=== PATIENT | male | born 1970 | race African-American/Black ===

== ENCOUNTER 2016-08-11 10:19 | Emergency (ER) | payer OTHER ==
[~2016-08-11] VITALS: Ht 182.9 cm; Wt 99.8 kg
[~2016-08-11 10:19] MED LIST: CYCLOBENZAPRINE10 MG ORAL; IBUPROFEN600 MG ORAL
[2016-08-11] MEDS ORDERED: Dicyclomine HCl 10mg/5ml oral soln ORAL ONE (11:00)
[2016-08-11] MEDS ORDERED: Lidocaine 2% Visc 15ml soln ORAL ONE (11:00)
[2016-08-11 11:05] VITALS: BP 120/73
[2016-08-11 11:18] LABS: BASOPHILS % (AUTO) 1.7 % (0.0-2.0); EOSINOPHILS % (AUTO) 0.6 % (0.0-3.0); LYMPHOCYTES % (AUTO) 25.6 % (20.0-45.0); MEAN CORPUSCULAR HEMOGLOBIN 28.9 PG (27.0-31.0); MEAN CORPUSCULAR HGB CONC 33.4 G/DL (32.0-36.0); MEAN CORPUSCULAR VOLUME 87 FL (80-99); MEAN PLATELET VOLUME 6.2 FL (6.5-10.1); MONOCYTES % (AUTO) 7.2 % (1.0-10.0); NEUTROPHILS % (AUTO) 64.9 % (45.0-75.0); PLATELET COUNT 238 K/UL (150-450); RED BLOOD COUNT 5.31 M/UL (4.70-6.10); RED CELL DISTRIBUTION WIDTH 11.4 % (11.6-14.8); WHITE BLOOD COUNT 6.2 K/UL (4.8-10.8)
[2016-08-11 11:21] LABS: APPEARANCE,URINE CLEAR; KETONES,URINE NEGATIVE (NEGATIVE); LEUKOCYTE ESTERASE ,URINE NEGATIVE (NEGATIVE); NITRITE,URINE NEGATIVE (NEGATIVE); PH,URINE 6 (4.5-8.0); PROTEIN,URINE 1+ (NEGATIVE); UROBILINOGEN,URINE NORMAL MG/DL (0.0-1.0)
[2016-08-11 11:31] LABS: ALANINE AMINOTRANSFERASE 32 U/L (3-41); ALBUMIN/GLOBULIN RATIO 1.1 (1.0-2.7); ANION GAP 15 (5-15); ASPARTATE AMINO TRANSFERASE 17 U/L (5-40); CALCIUM 9.2 mg/dL (8.6-10.2); CARBON DIOXIDE 27 mEQ/L (20-30); CHLORIDE 90 mEQ/L (98-107); CREATININE 1.3 mg/dL (0.7-1.2); GLOMERULAR FILTRATION RATE > 60 mL/min (>60); HEMOLYSIS 2; LIPASE 34 U/L (< 60); SODIUM 132 mEQ/L (135-145); TOTAL PROTEIN 7.2 g/dL (6.6-8.7); TROPONIN I < 0.30 ng/mL (<=0.30)
--- NOTE | 2016-08-11 11:31 | Emergency Room Report ---
History of Present Illness General Chief Complaint: Abdominal Pain Source: Patient (GirmaJamie) Present Illness HPI Patient is a 45-year-old male who presented after increased epigastric pain with associated chest pain and vomiting. Patient stated that he had gradual onset of symptoms over the past 4 days. Pain had been sharp in nature. He reported having subjective fever. He stated pain was worse with movement, he had decreased appetite. (Jamie Rayo) Allergies: Coded Allergies: No Known Allergies (Unverified , 09/29/14) Patient History Past Medical History: see triage record Reviewed Nursing Documentation: PMH: Agreed, PSxH: Agreed (Jamie Rayo) Nursing Documentation-PMH Past Medical History: No Stated History (Jamie Rayo) Review of Systems All Other Systems: negative except mentioned in HPI (Jamie Rayo) Physical Exam Vital Signs Date Time Temp Pulse Resp B/P Pulse Ox O2 Delivery O2 Flow Rate FiO2 08/11/16 10:28 99.0 88 14 121/72 97 Room Air Sp02 EP Interpretation: reviewed, normal General Appearance: normal inspection, alert, GCS 15, mild distress Head: atraumatic ENT: normal ENT inspection, hearing grossly normal, normal voice Neck: normal inspection, full range of motion, supple, no bony tend Respiratory: normal inspection, lungs clear, normal breath sounds, no respiratory distress, no retraction, no wheezing Cardiovascular #1: regular rate, rhythm, no edema Gastrointestinal: normal bowel sounds, non tender, no guarding, no hernia, tenderness - mild diffuse Genitourinary: no CVA tenderness Musculoskeletal: normal inspection, back normal, normal range of motion Neurologic: normal inspection, alert, oriented x3, responsive, 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 Differential diagnoses included ischemic bowel, appendicitis, perforated viscus , abdominal aortic aneurysm, inferior myocardial infarction, viral gastroenteritis Because of complexity of patient's case laboratory testing and imaging studies were ordered. Laboratory studies are unremarkable. CT abdomen pelvis was ordered due to the patient's tenderness throughout his abdomen.The patient was endorsed to Dr. Germain (Jamie Rayo) ER Course I assumed care of this patient from Dr. Rayo. This patient presented with nausea, vomiting, diarrhea and abdominal pain. He was awaiting CT abdomen and pelvis with results. This was to rule out appendicitis. Laboratory workup was noncontributory. The patient had improvement in his symptoms. CT abd/pelvis shows only liquid stool and specifically no e/o appendicitis or other serious intra-abdominal process. I reassessed the patient and he had significant improvement in his symptoms. He is tolerating oral without vomiting. He is not nauseated. Overall, the patient's evaluation is benign. I will give the patient oral Zofran and treatment for gastritis. The patient was given return precautions and followup instructions. I did not identify an emergency medical condition. (TERRY SANTANA D.O.) CT/MRI/US Diagnostic Results CT/MRI/US Diagnostic Results : Imaging Test Ordered: CT abd/pelvis Impression See official report. Liquid stool. No e/o appendicitis. (TERRY SANTANA D.O.) Last Vital Signs Date Time Temp Pulse Resp B/P Pulse Ox O2 Delivery O2 Flow Rate FiO2 08/11/16 11:05 20 120/73 Room Air 08/11/16 10:28 99.0 88 97 Status: improved (Jamie Rayo) Disposition: HOME, SELF-CARE Condition: Improved Scripts Ondansetron Odt* (ZOFRAN ODT*) 4 Mg Tab.rapdis 4 MG ORAL Q6H Y for Nausea & Vomiting, #10 TAB 0 Refills Prov: TERRY SANTANA D.O. 08/11/16 Ranitidine Hcl* (ZANTAC*) 150 Mg Tablet 150 MG ORAL TWICE A DAY, #30 TAB Prov: TERRY SANTANAOLucia 08/11/16 Calcium Carbonate/Simethicone (MAALOX ADVANCED TAB CHEW) 1 Each Tab.chew 1 EACH PO Q4HR, #20 TAB Prov: TERRY SANTANA D.O. 08/11/16 Referrals: DEL VELEZ [facility],REFERRI (PCP) Patient Instructions: Viral Gastroenteritis, Adult Jamie Rayo August 11, 2016 11:31 TERRY SANTANA D.O. August 11, 2016 16:07
[2016-08-11 11:35] LABS: BACTERIA,URINE OCCASIONAL /HPF; SQUAMOUS EPITHELIAL CELL,UR OCCASIONAL /LPF (NONE/OCC); WBC,URINE 0-2 /HPF (0 - 0)
[2016-08-11 11:44] LABS: INR 1.1 (0.9-1.1); PROTHROMBIN TIME 10.9 SEC (9.30-11.50)
[2016-08-11 13:51] VITALS: BP 120/80
[2016-08-11] MEDS ORDERED: Morphine Sulfate 4mg/ml Inj IVP ONE ×2 (14:00)
--- NOTE | 2016-08-11 14:05 | Diagnostic Imaging Report ---
Indication: Chest Pain Comparison: 09/29/14 A single view chest radiograph was obtained. Findings: Cardiomediastinal appearance is within normal limits for age. Pulmonary vascularity is appropriate. The diaphragmatic contour is smooth and costophrenic angles are sharp. No pleural effusions are identified. The bones are unremarkable. Impression: No acute findings
[2016-08-11] MEDS ORDERED: MAALOX ADVANCE1 EACH PO (16:11)
[2016-08-11] MEDS ORDERED: RANITIDINE HCL150 MG ORAL (16:11)
[2016-08-11] MEDS ORDERED: ZOFRAN ODT4 MG ORAL (16:11)
[2016-08-11 16:41] VITALS: BP 105/75
--- NOTE | 2016-08-12 09:04 | Diagnostic Imaging Report ---
Indication: Abdominal pain Technique: Continuous helical transaxial imaging of the abdomen and pelvis was obtained from the lung bases to the pubic symphysis during intravenous contrast administration. Coronal 2-D reformats were also obtained. Study obtained in a Siemens sensation [address] Total Dose length Product (DLP): [address] Dose Index Volume (CTDIvol): 18 mGy Comparison: None Findings: There is posterior basilar atelectasis bilaterally. There is a small hiatal hernia. Gallbladder is contracted. The liver is unremarkable. The spleen is unremarkable. Small cyst in the left kidney noted. There is no hydronephrosis. Appendix is normal. Some liquefied stool noted in the rectum sigmoid. Correlate for diarrhea. No evidence of bowel obstruction, free fluid or free air. Impression: Liquefied stool within the colon. Correlate for diarrhea. Normal appendix Small hiatal hernia Mild posterior basilar atelectasis. The CT scanner at [facility] is accredited by the [employer] and the scans are performed using protocols designed to limit radiation exposure to as low as reasonably achievable to attain images of sufficient resolution adequate for diagnostic evaluation.
--- NOTE | 2016-08-12 17:15 | Cardiology Report ---
APPROVED REPORT EKG Measurement Heart [id number] Normal sinus rhythm Normal ECG
== END 2016-08-11 16:41 | disposition home or self-care (01) ==
LOC: EMR 10:45
DX: K52.9 Noninfective gastroenteritis and colitis, unspecified (principal); R07.9 Chest pain, unspecified
CPT/HCPCS: 36415; 71010; 74177; 80053; 81003; 83690; 84484; 85025; 85610; 85730; 86850; 86870; 86900; 86901; 93005; 96374; 96375; 99284; J2270; J2405; Q9967

== ENCOUNTER 2017-01-24 14:54 | Emergency (ER) | payer OTHER ==
[~2017-01-24] VITALS: Ht 182.9 cm; Wt 102.1 kg
[~2017-01-24 14:54] MED LIST changes: +MAALOX ADVANCE1 EACH PO; +RANITIDINE HCL150 MG ORAL; +ZOFRAN ODT4 MG ORAL
[2017-01-24] MEDS ORDERED: NKM (15:04)
[2017-01-24 15:05] VITALS: BP 110/73
[2017-01-24] MEDS ORDERED: Ketorolac 60mg Inj IM ONE (15:30)
--- NOTE | 2017-01-24 15:47 | Emergency Room Report ---
History of Present Illness General Chief Complaint: Pain Source: Patient Present Illness HPI 46-year-old male presents to the emergency department complaining of 10 out of 10 in severity right-sided low back pain that radiates down the posterior right hamstring and into the knee x2 days. Patient reports prior surgery to the right knee for anterior cruciate ligament repair in 2005. Patient denies trauma or fall he denies fevers, chills, recent spinal procedures or history of neoplastic disease. 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 Patient states he has a difficult time finding a comfortable position and that laying flat or certain movements such as twisting aggravate his pain. He denies erythema, increased temperature palpation, open wounds. Patient does report some swelling to the right knee. denies abdominal pain, testicular pain or swelling, or swollen lymph nodes. Denies numbness tingling or loss of sensation or gross motor movements of the extremities, incontinence of bowel or bladder. Denies CP, Palpitations, LOC, AMS , dizziness, Changes in Vision, Sensation, paresthesias, or a sudden severe headache. Allergies: Coded Allergies: No Known Allergies (Unverified , 09/29/14) Patient History Past Medical History: see triage record Past Surgical History: none Pertinent Family History: none Immunizations: UTD Reviewed Nursing Documentation: PMH: Agreed, PSxH: Agreed Nursing Documentation-PMH Past Medical History: No Stated History Review of Systems All Other Systems: negative except mentioned in HPI Physical Exam Vital Signs Date Time Temp Pulse Resp B/P (MAP) Pulse Ox O2 Delivery O2 Flow Rate FiO2 01/24/17 14:56 98.2 91 18 110/73 98 Room Air Sp02 EP Interpretation: reviewed, normal General Appearance: no apparent distress, alert, GCS 15, non-toxic Head: normocephalic, atraumatic Eyes: bilateral eye normal inspection, bilateral eye PERRL ENT: hearing grossly normal, normal voice Neck: full range of motion, no bony tend Respiratory: lungs clear, normal breath sounds, speaking full sentences Cardiovascular #1: regular rate, rhythm, normal capillary refill Gastrointestinal: non tender, soft, no guarding Rectal: deferred Genitourinary: normal inspection, no CVA tenderness Musculoskeletal: back normal, gait/station normal, normal range of motion, tender - mild right upper glute and right lumbar paraspinal TTP, no midline spinal ttp, no obvious deformities, TTP to the lateral right knee, some swelling noted, lateral surgical scar noted, no erythema or increased temperature to palpation, FROM with pain. Neurologic: alert, oriented x3, responsive, motor strength/tone normal, sensory intact, speech normal Psychiatric: judgement/insight normal, memory normal, mood/affect normal Skin: normal color, no rash, warm/dry, well hydrated Medical Decision Making PA Attestation Dr. Rodrigez is my supervising Physician whom patient management has been discussed with. Diagnostic Impression: Primary Impression: Acute low back pain Qualified Codes: M54.41 - Lumbago with sciatica, right side Additional Impression: Knee pain Qualified Codes: M25.561 - Pain in right knee ER Course 46-year-old male presents to the emergency department complaining of 10 out of 10 in severity right-sided low back pain that radiates down the posterior right hamstring and into the knee x2 days. Patient reports prior surgery to the right knee for anterior cruciate ligament repair in 2005. Patient denies trauma or fall he denies fevers, chills, recent spinal procedures or history of neoplastic disease. 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 Patient states he has a difficult time finding a comfortable position and that laying flat or certain movements such as twisting aggravate his pain. He denies erythema, increased temperature palpation, open wounds. Patient does report some swelling to the right knee. denies abdominal pain, testicular pain or swelling, or swollen lymph nodes. Denies numbness tingling or loss of sensation or gross motor movements of the extremities, incontinence of bowel or bladder. Denies CP, Palpitations, LOC, AMS , dizziness, Changes in Vision, Sensation, paresthesias, or a sudden severe headache. Ddx considered but are not limited to Fracture, dislocation, contusion, epidural abscess, Sprain/Strain/Spasm, septic joint, gout Vital signs: are WNL, pt. is afebrile H&PE are most consistent with sciatica Pt. unable to tolerate straight leg raise. ORDERS: X-ray not required at this time, no spinous process tenderness ED INTERVENTIONS: -20mg Toradol IM - Soma PO - Ricki wrap applied by technology trainer. Pt. remains neurovascularly intact. Discussed with patient he will be treated as an outpatient with conservative management. Discussed followup with primary care and possibly orthopedic referral. He is instructed to return promptly to the emergency department with worsening or new symptoms Re-Evaluation: pt. states his pain has improved with ED interventions DISCHARGE: At this time pt. is stable for d/c to home. Will provide printed patient care instructions, and any necessary prescriptions. Care plan and follow up instructions have been discussed with the patient prior to discharge. Last Vital Signs Date Time Temp Pulse Resp B/P (MAP) Pulse Ox O2 Delivery O2 Flow Rate FiO2 01/24/17 15:05 98.2 18 110/73 98 Room Air 01/24/17 14:56 91 Disposition: HOME, SELF-CARE Condition: Stable Scripts Lidocaine (Lidoderm) 1 Each Adh..patch 1 PATCH TOPIC BID for 7 Days, #14 PATCH 0 Refills Patch(es) may remain in place for up to 12 hours in any 24-hour period. Prov: Didi Rose 01/24/17 Ibuprofen* (MOTRIN*) 600 Mg Tablet 600 MG ORAL THREE TIMES A DAY, #30 TAB 0 Refills Prov: Didi Rose 01/24/17 Methocarbamol* (ROBAXIN-750*) 750 Mg Tablet 750 MG PO TID for 7 Days, #21 TAB 0 Refills Prov: Didi Rose 01/24/17 Referrals: DEL GALLEGOS PLSonja,REFERRI (PCP) Departure Forms: Return to Work Return to Work Date: Jan 28, 2017 Work Restrictions: No Heavy Lifting, No Prolonged Standing Other Restrictions: light duty x 1 week. Return to Full Activity: Feb 04, 2017 Patient Instructions: Sciatica Additional Instructions: Take medications as directed. Follow up with a Primary Care Provider in 3-5 days, even if your symptoms have resolved. --Please review list of primary care clinics, if you do not already have a primary care provider Return sooner to ED if new symptoms occur, or current symptoms become worse. Do not drink alcohol, drive, or operate heavy machinery while taking Muscle Relaxer as this may cause drowsiness. - Please note that this Emergency Department Report was dictated using Noteleaflift manager technology software, occasionally this can lead to erroneous entry secondary to interpretation by the dictation equipment. Didi Rose Jan 24, 2017 15:47
[2017-01-24] MEDS ORDERED: ROBAXIN-750750 MG PO (15:48)
[2017-01-24] MEDS ORDERED: LIDODERM700 M1 TOPIC (15:48)
[2017-01-24] MEDS ORDERED: IBUPROFEN600 MG ORAL (15:48)
[2017-01-24 16:09] VITALS: BP 110/73
== END 2017-01-24 16:10 | disposition home or self-care (01) ==
LOC: EMR 15:35
DX: M54.41 Lumbago with sciatica, right side (principal); M25.561 Pain in right knee
CPT/HCPCS: 96372; 99284

== ENCOUNTER 2017-07-15 00:24 | Emergency (ER) | payer OTHER ==
[~2017-07-15] VITALS: Ht 183.5 cm; Wt 103.0 kg
[~2017-07-15 00:24] MED LIST changes: +LIDODERM700 M1 TOPIC; +NKM; +ROBAXIN-750750 MG PO
[2017-07-15] MEDS ORDERED: DILANTIN100 MG ORAL (00:40)
--- NOTE | 2017-07-15 01:03 | Emergency Room Report ---
History of Present Illness General Chief Complaint: Palpitations Source: Patient Present Illness HPI 46-year-old male, history of "irregular heartbeat", p/w chest pain for one day. Localized to substernal area, no radiation to back or other areas, sharp in nature, gradual in onsets. no SOB. Worsened with deep inspiration. Denies palpitations, diaphoresis, n/v. Patient states that he has had this chest pain multiple times in the past Admits to smoking but denies any drug use Denies fever, chills, cough, abd pain, recent viral illness. Denies trauma. Allergies: Coded Allergies: No Known Allergies (Unverified , 09/29/14) Patient History Past Medical History: see triage record Past Surgical History: none Pertinent Family History: none Reviewed Nursing Documentation: PMH: Agreed; PSxH: Agreed Nursing Documentation-PMH Past Medical History: No History, Except For Hx Seizures: Yes Review of Systems All Other Systems: negative except mentioned in HPI Physical Exam Vital Signs Date Time Temp Pulse Resp B/P (MAP) Pulse Ox O2 Delivery O2 Flow Rate FiO2 07/15/17 00:36 98.2 110 16 174/80 99 Room Air 98.2 Sp02 EP Interpretation: reviewed, normal General Appearance: alert, GCS 15, moderate distress, other - anxious Head: normocephalic, atraumatic Eyes: bilateral eye normal inspection, bilateral eye PERRL, bilateral eye EOMI ENT: normal ENT inspection, normal pharynx, normal voice, moist mucus membranes Neck: normal inspection, full range of motion, supple Respiratory: normal inspection, lungs clear, normal breath sounds, no respiratory distress, no retraction, no wheezing, speaking full sentences, chest symmetrical Cardiovascular #1: no edema, tachycardia Cardiovascular #2: 2+ radial (R), 2+ radial (L) Gastrointestinal: normal inspection, non tender, soft, non-distended, no guarding Genitourinary: no CVA tenderness Musculoskeletal: normal inspection, back normal, normal range of motion, non- tender Neurologic: normal inspection, alert, oriented x3, responsive, motor strength/ tone normal, sensory intact, normal gait, speech normal Psychiatric: normal inspection, judgement/insight normal, memory normal Skin: normal inspection, normal color, no rash, warm/dry, well hydrated, normal turgor Medical Decision Making Diagnostic Impression: Primary Impression: Palpitations Additional Impression: Amphetamine abuse ER Course 46-year-old male with no sig pmhx p/w chest pain DDX: Musculoskeletal CP/costochondritis vs. pneumothorax vs. gastritis/GERD ACS less likely given age/history Plan: Labs, NSAIDs, EKG, CXR ER course: Patient's vitals have been stable during his ED stay, he has refused to do labs , states that he is paranoid that nurses will "inject him with something", he states that he needs his family members with him before labs could be drawn. His denying any suicidal, homicidal thoughts no hallucinations finally able to draw labs trop neg positive for meth Disposition: Patient will be discharged to home Strict precautions discussed with patient on when to emergently return to the ED : this includes worsening/severe chest pain, palpitations, shortness of breath, syncopal episodes, fever or chills, which may indicate severe illness. Patient verbalized understanding. Patient instructed to follow up with their PMD within the next 2 days. Patient agrees with plan. Please note that this Emergency Department Report was dictated using FindItmanager medical technology software, occasionally this can lead to erroneous entry secondary to interpretation by the dictation equipment. EKG Diagnostic Results EP Interpretation: Yes Rate: normal Rhythm: NSR ST Segments: No acute changes ASA given to patient: no Rhythm Strip EP Interpretation: Yes Rate: 90 Rhythm: NSR, no PVCs, no ectopy Chest X-ray CXR: Ordered: Yes 1 view Indication: Chest pain EP interpretation: Yes Interpretation: No consolidation, no effusion, no PTX, no acute cardiopulmonary disease Impression: No acute disease Electronically signed by Jens Nickerson MD Laboratory Tests Test 07/15/17 03:40 07/15/17 03:50 White Blood Count 5.3 K/UL (4.8-10.8) Red Blood Count 5.53 M/UL (4.70-6.10) Hemoglobin 16.4 G/DL (14.2-18.0) Hematocrit 47.4 % (42.0-52.0) Mean Corpuscular Volume 86 FL (80-99) Mean Corpuscular Hemoglobin 29.7 PG (27.0-31.0) Mean Corpuscular Hemoglobin Concent 34.6 G/DL (32.0-36.0) Red Cell Distribution Width 10.8 % (11.6-14.8) L Platelet Count 271 K/UL (150-450) Mean Platelet Volume 6.3 FL (6.5-10.1) L Neutrophils (%) (Auto) 44.1 % (45.0-75.0) L Lymphocytes (%) (Auto) 43.6 % (20.0-45.0) Monocytes (%) (Auto) 8.7 % (1.0-10.0) Eosinophils (%) (Auto) 1.7 % (0.0-3.0) Basophils (%) (Auto) 2.0 % (0.0-2.0) Sodium Level 136 MMOL/L (136-145) Potassium Level 3.9 MMOL/L (3.5-5.1) Chloride Level 100 MMOL/L (98-107) Carbon Dioxide Level 29 MMOL/L (21-32) Anion Gap 7 mmol/L (5-15) Blood Urea Nitrogen 17 mg/dL (7-18) Creatinine 1.4 MG/DL (0.55-1.30) H Estimate Glomerular Filtration Rate > 60 mL/min (>60) Glucose Level 110 MG/DL (74-106) H Calcium Level 9.7 MG/DL (8.5-10.1) Total Bilirubin Pending Aspartate Amino Transferase (AST) Pending Alanine Aminotransferase (ALT) Pending Alkaline Phosphatase Pending Troponin I 0.000 ng/mL (0.000-0.056) Pro-B-Type Natriuretic Peptide Pending Total Protein Pending Albumin Pending Globulin Pending Urine Color Yellow Urine Appearance Clear Urine pH 5 (4.5-8.0) Urine Specific [place] 1.025 (1.005-1.035) Urine Protein 3+ (NEGATIVE) H Urine Glucose (UA) Negative (NEGATIVE) Urine Ketones 2+ (NEGATIVE) H Urine Occult Blood 1+ (NEGATIVE) H Urine Nitrite Negative (NEGATIVE) Urine Bilirubin Negative (NEGATIVE) Urine Urobilinogen 1 MG/DL (0.0-1.0) H Urine Leukocyte Esterase 1+ (NEGATIVE) H Urine RBC 0-2 /HPF (0 - 0) H Urine WBC 0-2 /HPF (0 - 0) Urine Squamous Epithelial Cells Few /LPF (NONE/OCC) Urine Bacteria None /HPF (NONE) Urine Opiates Screen Negative (NEGATIVE) Urine Barbiturates Screen Negative (NEGATIVE) Phencyclidine (PCP) Screen Negative (NEGATIVE) Urine Amphetamines Screen Positive (NEGATIVE) H Urine Benzodiazepines Screen Negative (NEGATIVE) Urine Cocaine Screen Negative (NEGATIVE) Urine Marijuana (THC) Screen Negative (NEGATIVE) Last Vital Signs Date Time Temp Pulse Resp B/P (MAP) Pulse Ox O2 Delivery O2 Flow Rate FiO2 07/15/17 00:36 98.2 110 16 174/80 99 Room Air 98.2 Disposition: HOME, SELF-CARE Condition: Improved Jens Nickerson M.D. Jul 15, 2017 01:03
[2017-07-15 01:10] VITALS: BP 174/80
[2017-07-15] MEDS ORDERED: Acetaminophen 500mg (ES) tab ORAL ONE ×3 (02:15→05:00)
[2017-07-15 02:30] VITALS: BP 160/82
[2017-07-15 03:30] VITALS: BP 150/82
[2017-07-15 03:51] LABS: EOSINOPHILS % (AUTO) 1.7 % (0.0-3.0); HEMATOCRIT 47.4 % (42.0-52.0); HEMOGLOBIN 16.4 G/DL (14.2-18.0); LYMPHOCYTES % (AUTO) 43.6 % (20.0-45.0); MEAN CORPUSCULAR VOLUME 86 FL (80-99); MONOCYTES % (AUTO) 8.7 % (1.0-10.0); NEUTROPHILS % (AUTO) 44.1 % (45.0-75.0); PLATELET COUNT 271 K/UL (150-450); RED BLOOD COUNT 5.53 M/UL (4.70-6.10); RED CELL DISTRIBUTION WIDTH 10.8 % (11.6-14.8); WHITE BLOOD COUNT 5.3 K/UL (4.8-10.8)
[2017-07-15 04:00] LABS: APPEARANCE,URINE CLEAR; BILIRUBIN, URINE NEGATIVE (NEGATIVE); GLUCOSE, URINE (UA) NEGATIVE (NEGATIVE); KETONES,URINE 2+ (NEGATIVE); LEUKOCYTE ESTERASE ,URINE 1+ (NEGATIVE); NITRITE,URINE NEGATIVE (NEGATIVE); PH,URINE 5 (4.5-8.0); PROTEIN,URINE 3+ (NEGATIVE); UROBILINOGEN,URINE 1 MG/DL (0.0-1.0)
[2017-07-15] MEDS ORDERED: Morphine Sulfate 4mg/ml Inj IVP ONE (04:00)
[2017-07-15] MEDS ORDERED: LORazepam Inj 2mg/ml 1ml IV ONE (04:00)
[2017-07-15 04:03] LABS: COLOR,URINE YELLOW
[2017-07-15 04:11] LABS: ANION GAP 7 mmol/L (5-15); BLOOD UREA NITROGEN 17 mg/dL (7-18); CALCIUM 9.7 MG/DL (8.5-10.1); CARBON DIOXIDE 29 MMOL/L (21-32); CHLORIDE 100 MMOL/L (98-107); CREATININE 1.4 MG/DL (0.55-1.30); POTASSIUM 3.9 MMOL/L (3.5-5.1); SODIUM 136 MMOL/L (136-145)
[2017-07-15 04:29] LABS: ALANINE AMINOTRANSFERASE 32 U/L (12-78); ALBUMIN 4.6 G/DL (3.4-5.0); ALBUMIN/GLOBULIN RATIO 1.1 (1.0-2.7); ALKALINE PHOSPHATASE 68 U/L (46-116); ASPARTATE AMINO TRANSFERASE 17 U/L (15-37); BILIRUBIN,TOTAL 1.3 MG/DL (0.2-1.0)
[2017-07-15 04:45] VITALS: BP 145/74
[2017-07-15 05:13] LABS: BILIRUBIN,DIRECT 0.2 MG/DL (0.0-0.3)
[2017-07-15 05:52] VITALS: BP 132/76
--- NOTE | 2017-07-15 11:30 | Diagnostic Imaging Report ---
Indication: Chest pain Comparison: 597 A single view chest radiograph was obtained. Findings: Cardiomediastinal appearance is within normal limits for age. Pulmonary vascularity is appropriate. The diaphragmatic contour is smooth and costophrenic angles are sharp. No pleural effusions are identified. The bones are unremarkable. Impression: No acute findings
== END 2017-07-15 05:58 | disposition home or self-care (01) ==
LOC: EMR 01:00
DX: R00.2 Palpitations (principal); F15.10 Other stimulant abuse, uncomplicated
CPT/HCPCS: 36415; 71045; 80053; 80307; 81003; 82248; 83880; 84484; 85025; 93005; 99283

== ENCOUNTER 2017-07-15 06:15 | Emergency (ER) | payer OTHER ==
[~2017-07-15] VITALS: Ht 183.5 cm; Wt 102.1 kg
[~2017-07-15 06:15] MED LIST changes: +DILANTIN100 MG ORAL
[2017-07-15 06:34] VITALS: BP 142/83
[2017-07-15 06:58] VITALS: BP 138/78
--- NOTE | 2017-07-15 07:10 | Emergency Room Report ---
Physical Exam Vital Signs Date Time Temp Pulse Resp B/P (MAP) Pulse Ox O2 Delivery O2 Flow Rate FiO2 07/15/17 06:25 98.5 97 20 142/83 96 Room Air 98.4 Medical Decision Making Diagnostic Impression: Primary Impression: Chest pain ER Course This patient left without being seen. Please see the note by Dr. Nickerson for full history and physical. He ended up technically signing out AGAINST MEDICAL ADVICE. The patient had been seen by Dr. Nickerson just prior to my arrival and had just been discharged. Apparently, he checked back in for concerns of palpitations after doing methamphetamine. He underwent EKG which I reviewed and it was unremarkable. Per staff, the patient stated that because his EKG was normal he wanted to leave before being seen by a physician again. The patient was educated that he was not being assessed 5 physician. He indicated understanding. He is requesting copies of his EKGs according to staff. Regardless, I did not evaluate or see this patient. The patient did sign AGAINST MEDICAL ADVICE paperwork from the staff. I did overhear this conversation which was very clear that the patient would not be seen by physician. The patient stated he had already been seen and did not want to undergo repeat workup. The patient left without being seen by myself. EKG Diagnostic Results Rate: normal Rhythm: NSR ST Segments: no acute changes Rhythm Strip Diag. Results EP Interpretation: yes Rate: 100 Rhythm: NSR, no PVC's, no ectopy Last Vital Signs Date Time Temp Pulse Resp B/P (MAP) Pulse Ox O2 Delivery O2 Flow Rate FiO2 07/15/17 06:58 98.0 82 18 138/78 98 Room Air Disposition: HOME, SELF-CARE Condition: Improved Referrals: DEL VELEZ ARSALAN VALE,REFERRI (PCP) TERRY SANTANA D.O. Jul 15, 2017 07:10
== END 2017-07-15 07:01 | disposition home or self-care (01) ==
LOC: EMR 06:44
DX: R07.9 Chest pain, unspecified (principal); R00.2 Palpitations; Z53.21 Procedure and treatment not carried out due to patient leaving prior to being seen by health care provider; F15.10 Other stimulant abuse, uncomplicated
CPT/HCPCS: 99282

== ENCOUNTER 2017-09-11 18:26 | Emergency (ER) | payer MEDICAID, OTHER ==
[~2017-09-11] VITALS: Ht 182.9 cm; Wt 95.3 kg
[2017-09-11] MEDS ORDERED: LORazepam Inj 2mg/ml 1ml IV ONE (18:30)
--- NOTE | 2017-09-11 18:43 | Emergency Room Report ---
History of Present Illness General Chief Complaint: Palpitations Source: Patient, EMS Present Illness HPI Patient was standing in line at [facility] and started feeling palpitations. He has a history of an irregular heartbeat. Also the patient has a history of seizures. He denies any seizure activity at this time. He is on Dilantin. He was feeling anxious with the paramedics. He refused to take aspirin. He has an allergy to Motrin. He also refused nitroglycerin. They performed an EKG which reveals sinus tachycardia. There is no injury. He was argumentative with paramedics when they stated patient was anxious. Patient denies WHIPPLE, NVD, chest pain, rashes, SI or HI. He has been seen for back pain but denies this at this time. Allergies: Coded Allergies: IBUPROFEN (Unverified Allergy, Unknown, 09/11/17) Uncoded Allergies: IBUPROFEN (Allergy, Unknown, 09/11/17) Patient History Past Medical History: see triage record Social History: Reports: drug use Social History Narrative with family Reviewed Nursing Documentation: PMH: Agreed; PSxH: Agreed Nursing Documentation-PMH Hx Seizures: Yes Review of Systems All Other Systems: negative except mentioned in HPI Physical Exam Vital Signs Date Time Temp Pulse Resp B/P (MAP) Pulse Ox O2 Delivery O2 Flow Rate FiO2 09/11/17 18:20 99.0 95 18 145/90 99 Room Air 99.0 Sp02 EP Interpretation: reviewed, normal General Appearance: well appearing, no apparent distress, GCS 15 Head: normocephalic Eyes: bilateral eye normal inspection, bilateral eye PERRL ENT: moist mucus membranes Neck: supple Respiratory: lungs clear, normal breath sounds Cardiovascular #1: regular rate, rhythm Cardiovascular #2: 2+ radial (R) Gastrointestinal: normal inspection, normal bowel sounds, non tender, no mass, non-distended Musculoskeletal: back normal, gait/station normal, normal range of motion Neurologic: alert, oriented x3, motor strength/tone normal, sensory intact, normal gait, other - Halting speech Psychiatric: no suicidal/homicidal ideation, other - Argumentative with EM Skin: normal inspection, warm/dry Medical Decision Making Diagnostic Impression: Primary Impression: Palpitations Additional Impressions: Methamphetamine abuse Refusal of care by patient ER Course The patient presents with palpitations. Prehospital EKG shows sinus tachycardia. Differential includes acute myocardial infarction, pulmonary embolus, left right abnormality, hypoglycemia, occult drug ingestion, anxiety, hyperthyroidism amongst others. The patient needs to be evaluated with EKG, chest x-ray and labs. He will be treated with IV hydration and also a small dose of Ativan. Patient refusing treatment - refusing to take Ativan. Agrees to take Tylenol. EKG here with NSR. No longer tachycardic. Refused to have monitor placed. I asked that if he felt palpitations that he tell us so we can place on monitor. Patient with multiple calls to belling machine operator (refuses to allow MD to speak with this person), home health [facility] (discussed with ERMD) and family (discussed with ERMLaura). I explained that he needed evaluation and treatment but they are unable to convince him to comply with evaluation and treatment. Discussed + amphetamines with patient. He states he last used 2 days ago. Patient refuses IV and blood draws - states afraid of needles. I discussed concern for possible muscle and kidney damage. Patient states he wants to speak with psychiatrist. Will not say why. Advised psychiatrist not available until AM. He states he is unwilling to wait. Patient manipulative and still refusing treatment. Patient signing out AMA. Escorted out of ED by [employer]. Laboratory Tests Test 09/11/17 18:35 Urine Color Pale yellow Urine Appearance Clear Urine pH 6 (4.5-8.0) Urine Specific [place] 1.010 (1.005-1.035) Urine Protein Negative (NEGATIVE) Urine Glucose (UA) Negative (NEGATIVE) Urine Ketones Negative (NEGATIVE) Urine Occult Blood Negative (NEGATIVE) Urine Nitrite Negative (NEGATIVE) Urine Bilirubin Negative (NEGATIVE) Urine Urobilinogen Normal MG/DL (0.0-1.0) Urine Leukocyte Esterase Negative (NEGATIVE) Urine Opiates Screen Negative (NEGATIVE) Urine Barbiturates Screen Negative (NEGATIVE) Phencyclidine (PCP) Screen Negative (NEGATIVE) Urine Amphetamines Screen Positive (NEGATIVE) H Urine Benzodiazepines Screen Negative (NEGATIVE) Urine Cocaine Screen Negative (NEGATIVE) Urine Marijuana (THC) Screen Negative (NEGATIVE) EKG Diagnostic Results Rate: normal Rhythm: NSR ST Segments: no acute changes Other Impression prehospital EKG Rhythm Strip Diag. Results EP Interpretation: yes Rhythm: NSR, no PVC's, no ectopy Last Vital Signs Date Time Temp Pulse Resp B/P (MAP) Pulse Ox O2 Delivery O2 Flow Rate FiO2 09/11/17 19:49 98.7 98 18 148/96 99 Room Air 98.7 Status: improved Disposition: AGAINST MEDICAL ADVICE Condition: Improved Frantz Cohen M.D. Sep 11, 2017 18:43
[2017-09-11 18:58] VITALS: BP 145/90
[2017-09-11 19:06] LABS: APPEARANCE,URINE CLEAR; BILIRUBIN, URINE NEGATIVE (NEGATIVE); COLOR,URINE PALE YELLOW; GLUCOSE, URINE (UA) NEGATIVE (NEGATIVE); KETONES,URINE NEGATIVE (NEGATIVE); LEUKOCYTE ESTERASE ,URINE NEGATIVE (NEGATIVE); NITRITE,URINE NEGATIVE (NEGATIVE); PH,URINE 6 (4.5-8.0); PROTEIN,URINE NEGATIVE (NEGATIVE); UROBILINOGEN,URINE NORMAL MG/DL (0.0-1.0)
[2017-09-11 19:49] VITALS: BP 148/96
[2017-09-11 21:00] VITALS: BP 145/82
[2017-09-11 21:35] VITALS: BP 145/82
--- NOTE | 2017-09-14 14:13 | Cardiology Report ---
APPROVED REPORT EKG Measurement Heart [id number] Normal sinus rhythm Normal ECG
== END 2017-09-11 21:35 | disposition left against medical advice (07) ==
LOC: EDBD 18:26 → EMR 18:41
DX: R00.2 Palpitations (principal); F15.10 Other stimulant abuse, uncomplicated; Z53.21 Procedure and treatment not carried out due to patient leaving prior to being seen by health care provider; Z88.6 Allergy status to analgesic agent
CPT/HCPCS: 80307; 81003; 93005; 96374; 96375; 99283